=== PATIENT | male | born 1990 | race Caucasian/White ===

== ENCOUNTER 2017-01-04 11:38 | Emergency (ER) | payer OTHER ==
[~2017-01-04 11:38] MED LIST: ALBUTEROL17 G1 IH; ALBUTEROL17 GM NEB; IBUPROFEN PO; IBUPROFEN400 MG PO; KETOPROFEN PO; NO MEDICATIONS; VICODIN 5/1 TAB 5/50 PO; ZITHROMAX PO; ZITHROMAX1 G/PKT PO
[2017-01-04 11:39] LABS: URINE SOURCE CLEAN CATCH
[2017-01-04 11:42] LABS: URINE APPEARANCE CLEAR; URINE BILIRUBIN NEG (NEG); URINE BLOOD 1+ (NEG); URINE COLOR YELLOW; URINE GLUCOSE NEG (NORM); URINE KETONE NEG (NEG); URINE LEUKOCYTE ESTERASE NEG (NEG); URINE NITRATE NEG (NEG); URINE PROTEIN NEG (NEG)
[2017-01-04 11:47] LABS: MICRO INDICATED? YES
[2017-01-04 11:49] LABS: CULTURE INDICATED? NO; URINE BACTERIA NEG (NEG); URINE RBC 0-2 /[HPF] (0-2); URINE WBC 0-2 /[HPF] (0-5)
[2017-01-04 11:54] LABS: AMPHETAMINE NEG (NEG); BARBITURATES NEG (NEG); BENZODIAZEPINES NEG (NEG); COCAINE NEG (NEG); MARIJUANA NEG (NEG); OPIATES NEG (NEG); TRICYCLIC ANTIDEPRESSANTS NEG (NEG); U METHADONE NEG (NEG)
== END 2017-01-04 12:38 | disposition home or self-care (01) ==
LOC: SED 11:38
PROVIDERS: Emergency Medicine
DX: S39.012A Strain of muscle, fascia and tendon of lower back, initial encounter (principal); J45.909 Unspecified asthma, uncomplicated; Z88.0 Allergy status to penicillin; X50.1XXA Overexertion from prolonged static or awkward postures, initial encounter; Y93.89 Activity, other specified; Y92.009 Unspecified place in unspecified non-institutional (private) residence as the place of occurrence of the external cause
CPT/HCPCS: 80307; 81003; 96372; 99283; J1885